=== PATIENT | male | born 1990 | race Caucasian/White ===

== ENCOUNTER → 2017-07-30 | Outpatient (CLI) | payer OTHER | LOC: COL.PUL 07-23 10:00 | DX: R06.02 Shortness of breath (principal) | CPT/HCPCS: J7674 ==

== ENCOUNTER → 2018-02-13 | Outpatient (CLI) | payer OTHER | LOC: COL.PUL 13:00 | DX: R06.02 Shortness of breath (principal) ==

== ENCOUNTER → 2018-02-19 | Outpatient (CLI) | payer OTHER | LOC: COL.PUL 08:00 | DX: R06.02 Shortness of breath (principal) | CPT/HCPCS: J7674 ==